=== PATIENT | female | born 1945 | race African-American/Black ===

== ENCOUNTER → 2017-01-29 | Day surgery (SDC) | payer MEDICARE ==
[~2017-01-29] MED LIST: ASPI81 PO; ATEN-102 PO; BUPIVACAINE HCL PF 0.5% 10 ML VIAL ONE; CLINDAMYCIN PHOS 900 MG/6 ML VIAL ONE; FOSI10TA PO; GLIM1TAB PO; HYDR12.56 PO; ISOSULFAN BLUE 50 MG/5 ML VIAL SQ ONE; KETOROLAC TROMETHAMINE 30 MG/ML (IVP) VIAL ONE; LACTATED RINGER'S 1000 ML INJ 1,000 ML ONE; MIDAZOLAM HCL 2 MG/2 ML VIAL ONE; OMEP20TA PO; ONDANSETRON HCL 4 MG/2 ML VIAL IV PUSH ONE; PROPOFOL 200 MG/20 ML AMP IV ONE; SODIUM CHLORIDE 0.9% INJ 10 ML ONE; SODIUM CHLORIDE 0.9% SOLN 100 ML (PAB) BAG IV ONE
--- NOTE | 2017-01-29 15:12 | TN ---
cc: SANDRA KINNEY DATE OF SURGERY: 01/29/2017. PRINCIPAL DIAGNOSIS: Left breast cancer. PROCEDURE PERFORMED: Left breast needle-localized lumpectomy and left axillary sentinel lymph node biopsy. SURGEON: Sandra Kinney MD. ANESTHESIA: General via LMA device. INDICATIONS FOR THE PROCEDURE: The patient is a 71-year-old -Portuguese female noted to have a new clinical stage I left breast cancer on imaging. She has opted for breast conservation and now presents for definitive surgical therapy. FINDINGS AT SURGERY: Five sentinel lymph nodes were identified: #1 was 1+ blue with a count of 3278, #2 was 2+ blue with a count of 2988, #3 was 2+ blue with a count of 411. [place] lymph node #4 was not blue with a count of 78 and sentinel lymph node #5 was 1+ blue with a count of 49. TouchPrep was not performed. Specimen mammogram did demonstrate an intact wire and the biopsy clip and lesion were within the specimen. DESCRIPTION OF THE PROCEDURE IN DETAIL: After informed consent was obtained and site verification was performed, the patient was brought to the radiology suite where she underwent needle localization of her prior biopsy site as well as peritumoral radionuclide injection. She was then brought to the major operating room where she underwent general anesthesia via an LMA device. She was given a single dose of clindamycin due to PENICILLIN ALLERGY and sequential compression hose were placed. The left breast and arm were prepped and draped in sterile fashion. Five mL of half-strength Lymphazurin were injected in the subareolar left breast and a 5-minute massage was performed. An incision was then anesthetized at the inferior aspect of the left axillary hairline as well as the upper outer periareolar left breast. The skin incision was dissected further in the axilla using sharp and electrocautery dissection until the clavipectoral fascia was divided and the level I axilla was entered. Multiple blue channels were immediately identified and multiple blue lymph nodes in mid level I were noted and circumferentially dissected free from surrounding structures using the harmonic scalpel with the counts as noted. These nodes were sent for permanent pathologic evaluation. Good hemostasis was noted in the axilla and the wound was closed using interrupted 3-0 Vicryls and a 4-0 Monocryl subcuticular suture. Attention was then turned to the left breast where the lesion was identified at one o'clock 3 cm from the nipple. A periareolar skin incision was created sharply and sharp dissection was performed until the wire entry point through the skin was identified and secured with a hemostat. The wire was cut off at the skin with pin cutters and a 2-0 silk transfixion suture was placed at the wire entry point into the breast tissue. Both sharp and electrocautery dissection were then performed beyond the tip of the wire. The specimen was oriented with one long suture superiorly, one short suture laterally, and two sutures anteriorly. Inspection did demonstrate that the superior and lateral margins appeared close and each of these was sharply re-excised and oriented with a stitch on the new margin. They were then sent for permanent pathologic evaluation. Hemostasis was easily obtained with electrocautery and the wound was closed using interrupted 3-0 Vicryl subcutaneous sutures and a 4-0 Monocryl subcuticular suture. Steri-Strips and sterile dressings were then applied to both wounds. The patient tolerated the procedure well with an estimated blood loss of 50 mL. She was extubated in the operating room and brought to the recovery room in good condition. All sponge and needle counts were correct at the conclusion of the case. MD MIRNA Sanches/LIDYA /2:42 PM /2:53 PM
== END | disposition home or self-care (01) ==
LOC: ESDC 09:07
PROVIDERS: ATTEND Surgery
DX: C50.912 Malignant neoplasm of unspecified site of left female breast (principal)
CPT/HCPCS: 00400; 01610; 19125; 38525; 38792; 88307; J1885; J2250; J2405; J3010; J7120; Q9968